=== PATIENT | female | born 1980 | race African-American/Black ===

== ENCOUNTER 2019-07-03 12:10 | Emergency (ER) | payer MEDICARE, MEDICAID | END 2019-07-03 13:31 | disposition left against medical advice (07) | LOC: ER 12:10 | DX: M79.606 Pain in leg, unspecified (principal); Z53.21 Procedure and treatment not carried out due to patient leaving prior to being seen by health care provider ==

== ENCOUNTER 2023-06-01 22:05 | Emergency (ER) | payer MEDICARE, MEDICAID ==
[~2023-06-01] VITALS: Ht 162.6 cm; Wt 100.0 kg
[2023-06-01 22:10] VITALS: O2SAT 97
[2023-06-02 00:11] LABS: BASOPHILS % 0.4 % (0.0-2.0); HEMATOCRIT. 40.9 % (36.0-48.0); HEMOGLOBIN. 13.4 g/dL (12.0-16.0); LYMPHOCYTES % 36.9 % (20.0-50.0); MEAN CORPUSCULAR HEMOGLOBIN 29.3 pg (28.0-32.0); MEAN CORPUSCULAR HGB CONC 32.9 g/dL (31.0-37.0); MEAN CORPUSCULAR VOLUME 89.1 fL (81.0-99.0); MEAN PLATELET VOLUME 8.2 fl (7.4-10.4); MONOCYTES % 10.8 % (2.0-8.0); NEUTROPHILS % 50.9 % (40.0-76.0); PLATELET 281 x1000/uL (130-400); RED BLOOD CELL COUNT 4.59 mill/uL (4.2-5.4); RED CELL DISTRIBUTION WIDTH 14.6 % (11.6-14.6); WHITE BLOOD COUNT 6.8 x1000/uL (4.5-11.0)
[2023-06-02 00:23] LABS: ACETAMINOPHEN < 2 ug/mL (10-30); ALANINE AMINOTRANSFERASE 13 IU/L (10-49); ALBUMIN 4.5 g/dL (3.2-4.8); ASPARTATE AMINOTRANSFERASE 17 IU/L (<34); BILIRUBIN TOTAL 0.3 mg/dL (0.1-1.0); CALCIUM 9.6 mg/dL (8.7-10.4); CARBON DIOXIDE 28 mEq/L (21-32); CHLORIDE 107 mEq/L (98-107); CLARITY URINE CLEAR (CLEAR); COLOR URINE DARK YELLOW (YELLOW); CREATININE 0.6 mg/dL (0.6-1.0); GLUCOSE 83 mg/dL (70-105); GLUCOSE URINE NEGATIVE (NEGATIVE); KETONES URINE TRACE (NEGATIVE); LEUKOCYTE ESTERASE URINE NEGATIVE (NEGATIVE); NITRITE URINE NEGATIVE (NEGATIVE); OCCULT BLOOD URINE 2+ (NEGATIVE); POTASSIUM 3.5 mEq/L (3.5-5.1); PROTEIN TOTAL 8.4 g/dL (6.0-8.3); PROTEIN URINE 1+ (NEGATIVE); SODIUM 143 mEq/L (136-145); SPECIFIC GRAVITY URINE 1.026 (1.005-1.030); UREA NITROGEN BLOOD 10 mg/dL (9-23)
[2023-06-02 00:25] LABS: ETHANOL BLOOD < 10 mg/dL (<10)
[2023-06-02 00:26] LABS: *AMPHETAMINES SCREEN URINE NEGATIVE (NEGATIVE); *BARBITURATES SCREEN URINE NEGATIVE (NEGATIVE); *BENZODIAZEPINES SCREEN URINE NEGATIVE (NEGATIVE); *COCAINE SCREEN URINE NEGATIVE (NEGATIVE); CANNABINOID URINE SCREEN NEGATIVE (NEGATIVE); ECSTASY MDMA SCREEN URINE CONF.TEST INDICATED (NEGATIVE); METHADONE URINE SCREEN Neg (NEGATIVE); OPIATES URINE SCREEN NEGATIVE (NEGATIVE); PHENCYCLIDINE URINE SCREEN NEGATIVE (NEGATIVE)
[2023-06-02 00:33] LABS: HCG SCREEN NEGATIVE
[2023-06-02 02:46] LABS: SQUAMOUS EPITHELIAL CELL URINE 1+ /lpf (RARE/1+)
[2023-06-02 02:47] LABS: WBC URINE 0-2 /hpf (0-2)
[2023-06-02 02:48] LABS: BACTERIA URINE NONE SEEN
[2023-06-02] MEDS ORDERED: CHOL2000 PO (09:44)
[2023-06-02] MEDS ORDERED: LORA-249 PO (09:44)
[2023-06-02] MEDS ORDERED: BUPR200T8 PO (09:44)
[2023-06-02] MEDS ORDERED: LAMO100T16 PO (09:44)
[2023-06-02] MEDS: OLANZAPINE 5MG TABLET ODT PO SCH ×2 (09:45→17:00)
[2023-06-02] MEDS ORDERED: BUPROPION HCL 100MG SR TABLET PO SCH ×2 (10:00→11:30)
[2023-06-02 11:06] VITALS: BP 122/77; PULSE 88; RESP 17; TEMP 97.9
[2023-06-02] MEDS ORDERED: LAMOTRIGINE 100MG TABLET PO SCH (11:30)
[2023-06-02] MEDS ORDERED: AMLODIPINE 5MG TABLET PO ONE (19:15)
[2023-06-03] MEDS ORDERED: BUPROPION HCL 100MG SR TABLET PO SCH (09:00)
== END 2023-06-02 20:01 ==
LOC: ER 22:05
DX: F31.9 Bipolar disorder, unspecified (principal); I10 Essential (primary) hypertension; Z20.822 Contact with and (suspected) exposure to COVID-19
CPT/HCPCS: 36415; 80053; 80305; 80307; 80320; 80329; 81003; 84703; 85025; 87426; 99285; G0480